=== PATIENT | male | born 1975 | race Caucasian/White ===

== ENCOUNTER → 2017-03-08 07:35 | Outpatient (CLI) | payer MEDICAID ==
--- NOTE | 2017-03-10 13:09 | ST ---
PATIENT:CARIN ROMAN MEDICAL RECORD: [id number] SEX: M LOCATION:[facility] ORDER #: ADMISSION DATE: 03/08/17 AGE OF PATIENT: 41 REFERRING PHYSICIAN: INTERPRETING PHYSICIAN: DYLON FELTON MD DATE OF SERVICE: 03/08/2017 PROCEDURE: Nuclear Stress Test INDICATION: Chest pain of unknown etiology. He was exercised on standard Lexiscan protocol with 31.6 mCi of sestamibi injected at peak stress. Rest images were done with 12.7 mCi. FINDINGS: Gated SPECT reveals preserved ejection fraction greater than 60% with good wall motion and thickening and brightening throughout the segments. SPECT imaging Cardiolite was used as myocardial perfusion agent. There is homogeneous uptake throughout all segments at rest and stress with no evidence of inducible ischemia or previous infarction. OVERALL IMPRESSION: 1. This is a normal nuclear stress test with no evidence of inducible ischemia or previous infarction. 2. Gated SPECT reveals preserved ejection fraction greater than 60%. In this patient with ongoing symptomatology, the current scan does not suggest the presence of hemodynamically significant coronary artery disease. We will evaluate noncardiac etiology of chest pain. TRANSINT:[id number] Voice Confirmation ID: [id number] DOCUMENT ID: [id number] DYLON FELTON MD at 1309 CC: [id number] DICTATION DATE: 03/08/17 1217 INDEPENDENT PRODUCER: 03/08/17 1446 DEP CLI 03/08/17 [id number] [place] [address]
== END | disposition home or self-care (01) ==
LOC: D.NM 07:35
DX: I20.9 Angina pectoris, unspecified (principal)